=== PATIENT | female | born 1970 | race Caucasian/White ===

== ENCOUNTER → 2019-12-07 | Outpatient (CLI) | payer OTHER ==
[~2019-12-07] MED LIST: BENADRYL25 MG PO; BUTALBIT-ACETA1 EACH PO; IMITREX100 MG PO; LEVOXYL125 MCG PO; MINIVELLE1 EAC1 PO; NABUMETONE 500500 M2 PO; NURTEC ODT75 MG PO; PROGESTERO50 MG/1 M3 PO; ZYRTEC10 M5 PO
[2019-12-07 16:30] LABS: ABSOLUTE NEUTROPHILS 3.4 thou/uL (1.4-8.2); HEMATOCRIT 42.5 % (37.0-47.0); HEMOGLOBIN 14.2 gm/dL (12.0-15.0); LYMPHOCYTES 35.1 % (24.0-44.0); MCH 29.4 pg (26.0-34.0); MCHC 33.4 g/dL (28.0-37.0); MCV 87.8 fL (80.0-100.0); MONOCYTES 7.1 % (1.0-8.0); PLATELET COUNT 259 thou/uL (150-400); POLYS 53.8 % (36.0-66.0); RBC 4.84 mil/uL (4.20-5.00); RDW 13.5 % (10.5-14.5); WBC 6.3 thou/uL (4.0-11.0)
[2019-12-07 16:57] LABS: ALBUMIN 4.1 g/dL (3.4-5.0); ANION GAP 6 mmol/L (7-16); BUN 7 mg/dL (7-18); CALCIUM 9.2 mg/dL (8.5-10.1); CHLORIDE 99 mmol/L (98-107); CHOLESTEROL 181 mg/dL (<200); CO2 30 mmol/L (21-32); CREATININE 0.7 mg/dL (0.6-1.0); GLUCOSE 100 mg/dL (74-106); HDL CHOLESTEROL 57 mg/dL (>40); LDL CHOLESTEROL 98 mg/dL (<100); POTASSIUM 4.3 mmol/L (3.5-5.1); SGOT 14 U/L (15-37); SGPT 16 U/L (30-65); SODIUM 135 mmol/L (136-145); TC:HDL 3.2 Ratio (Not establshd); TOTAL BILIRUBIN 0.3 mg/dL (0.2-1.0); TOTAL PROTEIN 7.4 g/dL (6.4-8.2); TRIGLYCERIDE 134 mg/dL (<150); VLDL 27 mg/dL (<40)
[2019-12-09 02:36] LABS: GLYCOHEMOGLOBIN (HGB A1C) 5.2 % (4.8-5.6)
== END ==
LOC: LAB 15:44
PROVIDERS: ATTEND Family Medicine
DX: Z20.2 Contact with and (suspected) exposure to infections with a predominantly sexual mode of transmission (principal); Z00.00 Encounter for general adult medical examination without abnormal findings; E03.9 Hypothyroidism, unspecified

== ENCOUNTER → 2019-12-13 | Outpatient (CLI) | payer OTHER | LOC: LAB 10:51 | PROVIDERS: ATTEND Student in an Organized Health Care Education/Training Program | DX: Z03.818 Encounter for observation for suspected exposure to other biological agents ruled out (principal) ==

== ENCOUNTER → 2020-02-08 | Outpatient (CLI) | payer OTHER | LOC: MRI 13:49 | PROVIDERS: ATTEND Family Medicine | DX: M47.816 Spondylosis without myelopathy or radiculopathy, lumbar region (principal); M48.061 Spinal stenosis, lumbar region without neurogenic claudication ==

== ENCOUNTER → 2020-02-28 | Outpatient (CLI) | payer OTHER ==
[~2020-02-28] VITALS: Ht 167.6 cm; Wt 66.2 kg
[2020-02-28 12:28] VITALS: BP 137/96
--- NOTE | 2020-02-28 12:47 | NUR ---
Pain Clinic Assessment: 1. History of Osteoarthritis: Not Applicable History of Rheumatoid Arthritis: Not Applicable 2. Height: 5 ft. 6 in. 167.6 cm. Weight: 146.0 lb. oz. 66.225 kg. Patient's BMI: 23.6 3. Vital Signs: BP: 137/96 Pulse: 83 Resp: 20 Temp: 02 Sat: 98 ECG Mon: 4. Pain Intensity: 4; 8 AT WORST 5. Fall Risk: Dizziness: N Needs help standing or walking: N Fallen in the last 3 months: N Fall risk comments: 6. Patient on Blood Thinner: None 7. History of Hypertension: N 8. Opioid Therapy greater than 6 weeks: N Opiate Contract Signed: 9. Risk Assessment Tool Provided: 0-LOW RISK 10. Functional Assessment Tool: 11. Recreational Drug Use: Never Drug Type: Tobacco Use: Never Smoker Tobacco Type: Amount or Packs/day: How Many Years: Alcohol Use: Yes Frequency: Weekly Quant: 3-5
--- NOTE | 2020-03-12 07:39 | HPC ---
[facility] [place] [address] PAIN MANAGEMENT CONSULTATION Name: VESTA MOURA [id number] Admission: 02/28/20 Attend Phys: Vinay Granger DO Discharge: Date of : 72 Report #: [id number] CC: Vinay Covarrubias DATE OF SERVICE: 02/28/2020 REFERRING PHYSICIAN: Vinay Arellano DO CHIEF COMPLAINT: Low back pain, right lower extremity pain with paresthesias. HISTORY OF PRESENT ILLNESS: As you know, the patient is a very pleasant 49-year-old female who reports acute onset of low back pain, right lower extremity pain that began 11/2019. The patient denies any specific injury or trauma that may have led to symptom development. She indicates that her pain has progressively worsened. She sought evaluation through her primary care physician when fdms-sjv-vzgnulv medications, rest and relaxation did not improve symptoms. She had symptoms that were controlled fairly well with conservative treatment prior to this episode. Due to lack of improvement with conservative treatment and progressively worsening symptoms, the patient underwent imaging of the lumbar spine, which showed changes at the L4-L5 level showing severe central canal stenosis and she was subsequently referred to our clinic to discuss interventional treatment options. The patient indicates today her pain is continuous, steady and constant with rhythmic exacerbations of symptoms. She describes the pain as aching, throbbing, sharp, stabbing, numbness and tingling. Places current pain score 5/10, daily average anywhere from 4-5/10, the worst pain has been is 8/10. The patient states that pain is exacerbated with pushing, pulling, stretching and standing for long periods of time as well as walking long distances. Pain is improved with Biofreeze, ibuprofen, heat and cold compresses and repositioning. She has been referred to our service to discuss interventional treatment options to address suspected lumbar radiculopathy secondary to central canal stenosis. PAST MEDICAL HISTORY: 1. Hypothyroidism. 2. Seasonal allergies. 3. Cervical cancer, status post hysterectomy. 4. Chronic low back pain. PAST SURGICAL HISTORY: 1. Hysterectomy. 2. Thyroidectomy. 3. Correction of a "lazy eye." 4. Jaw surgery. 5. Carpal tunnel release. 6. Laparoscopic lysis of adhesions. 7. ACL reconstruction. 8. Bladder sling surgery. SOCIAL HISTORY: The patient denies tobacco, IV or illicit drug use. Admits to approximately 3-5 alcohol beverages per week. She is employed as a surgical nurse. She is working, not receiving workmen's compensation nor is she trying to obtain disability benefits. She is not in litigation in regards to pain. REVIEW OF SYSTEMS: Positive for wearing corrective eyewear, hearing loss with tinnitus, chronic sinus problems with rhinitis, seasonal allergies, frequent and recurrent headaches, thyroid disease, chronic low back pain, right lower extremity pain. All other review of systems negative per 12-point review of systems other than those listed in history of present illness. Pain impact score 20/70 indicating vgrf-kz-nxvugozz interference of daily activities secondary to pain. ALLERGIES: ERYTHROMYCIN. CURRENT MEDICATIONS: Nurtec 75 mg, Fioricet p.r.n., sumatriptan 100 mg p.o. p.r.n., diphenhydramine 25 mg per day, estradiol 1 mg once a day, progesterone 100 mg per day, cetirizine 10 mg per day, levothyroxine 125 mcg per day. IMAGING: MRI lumbar spine obtained 02/08/2020 shows L1-L2 unremarkable. L2-L3 shows bilateral facet hypertrophy and ligamentum flavum hypertrophy. No significant central canal nor neural foraminal stenosis. L3-L4 bilateral facet arthropathy, ligamentum flavum hypertrophy. No significant central canal or neural foraminal narrowing. L4-L5, broad-based posterior disk bulge, bilateral facet hypertrophy resulting in severe central canal stenosis with AP diameter measuring only 7.8 mm. L5-S1 bilateral atrophic changes, no central canal nor neural foraminal narrowing. PHYSICAL EXAMINATION: VITAL SIGNS: Blood pressure 137/96, pulse 83, respiratory rate 20 and unlabored. The patient is 98% on room air. Height 5 feet 6 inches tall, weight 146 pounds, BMI calculated 23.6. GENERAL: Well-developed, well-nourished, well-hydrated 49-year-old female appearing stated age, pain is rated anywhere from 4-8/10. HEENT: Normocephalic, atraumatic. Pupils equal, round and reactive to light. Extraocular muscles are intact. Sclerae nonicteric without injection. NEUROLOGIC: Cranial nerves 2-12 grossly intact. Speech is fluent. LUNGS: Clear, no wheeze, rhonchi or rales. CARDIOVASCULAR: Regular. No appreciable gallop, no rub. ABDOMEN: Soft, nontender, nondistended, normal active bowel sounds. EXTREMITIES: Show no clubbing, no cyanosis. No appreciable edema. MUSCULOSKELETAL: Lower extremity strength equal and symmetrical 5/5. Slight giveaway strength noted with hip flexion on the right when compared to left. This is due to pain generation. Seated straight leg raising is mildly positive. Supine straight leg raising positive on the right. Moy's test is negative. Modified Gaenslen's positive for axial low back pain. Ankle clonus negative. Babinski is negative. The patient is able to toe walk and heel walk. She is intact to light touch from L1 through S2 dermatomes. Deep tendon reflexes equal and symmetrical at patella and Achilles. ASSESSMENT: 1. Symptomatic lumbar radiculopathy. 2. Severe central canal stenosis of lumbar spine. 3. Displacement of lumbar intervertebral disk with radiculopathy. 4. Lumbosacral spondylosis with radiculopathy. 5. Neural foraminal stenosis of the lumbar spine. 6. Facet arthropathy of the lumbar spine. 7. Chronic intractable pain. PLAN: 1. Based on today's physical exam and history the patient has provided, the description the patient uses in regards to pain as well as location of symptoms, it would appear that she is suffering from lumbar radiculopathy. We reviewed the patient's MRI with her today with the changes noted at the L4-L5 level consistent with the patient's symptoms of lower extremity symptomology due to central canal stenosis. At present, she only has effects of pain on the right side, but has had a history of left-sided symptoms in the past, which is consistent with the central canal stenosis. After reviewing the MRI and correlating these findings to her current symptoms, we then discussed treatment options with the patient. The following was discussed with the patient as treatment courses. We discussed physical therapy, stretching exercises, core strengthening techniques. This would initially be done in a formalized fashion and then transition into home based treatment. We discussed medication management with suggestions of treatment to address neuropathic symptoms with nortriptyline, amitriptyline, Cymbalta, Lyrica or gabapentin. We also discussed the possible addition of nonsteroidal anti-inflammatories as a treatment course. We discussed epidural injections under fluoroscopic guidance for which the patient was referred to our clinic. We also discussed surgical options, both the spinal cord stimulator technology and surgical decompression at the L4-L5 level. After reviewing the risks and benefits of all proposed treatment options, the patient chose to move forward with the lumbar epidural injection under fluoroscopic guidance. 2. The patient was advised that due to third democrat payer restrictions, authorization would have to be obtained before the patient could undergo a lumbar epidural injection. Authorization could take anywhere from 4-7 working days. We will begin this process immediately. Once we have this authorization, we will contact the patient to be seen and undergo the procedure. We are hopeful we can get this authorization done quickly and have the patient return to undergo the first in a series of epidural injections. 3. No medication changes made at today's visit. The patient will continue current medical therapy as prior prescribed. We recommend she continue treatment at a current dosing. We will discuss possible adjustments in medication management at next visit if epidural injection is ineffective at treating symptoms fully. 4. We will see the patient back in followup visit once we have authorization to undergo lumbar epidural injection under fluoroscopic guidance to address central canal stenosis and resultant lumbar radiculopathy. 5. We wish to thank Dr. Arellano for the opportunity to see this patient in consultation. We will keep you apprised of response to treatment as we address lumbar radiculopathy. Again, we wish to thank you for the opportunity to see this patient in consultation. <ELECTRONICALLY SIGNED> By: Vinay Granger DO 03/12/20 0739 [id number] Vinay Granger DO /nt
== END ==
LOC: PAIN 06:38
PROVIDERS: ATTEND Anesthesiology Pain Medicine
DX: M47.27 Other spondylosis with radiculopathy, lumbosacral region (principal); M51.16 Intervertebral disc disorders with radiculopathy, lumbar region; M79.604 Pain in right leg; R20.2 Paresthesia of skin; M48.061 Spinal stenosis, lumbar region without neurogenic claudication; G89.29 Other chronic pain; Z88.8 Allergy status to other drugs, medicaments and biological substances; Z79.899 Other long term (current) drug therapy

== ENCOUNTER → 2020-04-08 | Outpatient (CLI) | payer OTHER | LOC: LAB 11:31 | PROVIDERS: ATTEND Family Medicine | DX: R50.9 Fever, unspecified (principal); J02.9 Acute pharyngitis, unspecified; Z20.828 Contact with and (suspected) exposure to other viral communicable diseases ==

== ENCOUNTER → 2020-04-30 | Outpatient (CLI) | payer OTHER ==
[2020-04-30 12:02] LABS: ABSOLUTE NEUTROPHILS 3.5 thou/uL (1.4-8.2); BASOPHILS 2.5 % (0.0-2.0); EOSINOPHILS 1.6 % (0.0-3.0); HEMATOCRIT 41.6 % (37.0-47.0); HEMOGLOBIN 13.6 gm/dL (12.0-15.0); LYMPHOCYTES 33.1 % (24.0-44.0); MCH 29.3 pg (26.0-34.0); MCHC 32.6 g/dL (28.0-37.0); MCV 89.8 fL (80.0-100.0); MONOCYTES 7.3 % (1.0-8.0); PLATELET COUNT 236 thou/uL (150-400); POLYS 55.5 % (36.0-66.0); RBC 4.63 mil/uL (4.20-5.00); RDW 13.8 % (10.5-14.5); WBC 6.4 thou/uL (4.0-11.0)
[2020-04-30 12:17] LABS: ALBUMIN 3.7 g/dL (3.4-5.0); CREATININE 0.8 mg/dL (0.6-1.0); POTASSIUM 3.7 mmol/L (3.5-5.1); TOTAL BILIRUBIN 0.3 mg/dL (0.2-1.0); TOTAL PROTEIN 7.1 g/dL (6.4-8.2)
== END ==
LOC: LAB 11:30
PROVIDERS: ATTEND Nurse Practitioner
DX: G43.901 Migraine, unspecified, not intractable, with status migrainosus (principal)

== ENCOUNTER → 2020-09-27 | Outpatient (CLI) | payer OTHER | LOC: LAB 10:13 | PROVIDERS: ATTEND Family Medicine | DX: E03.9 Hypothyroidism, unspecified (principal) ==

== ENCOUNTER → 2020-10-04 | Outpatient (CLI) | payer OTHER | LOC: CAT 15:28 | PROVIDERS: ATTEND Nurse Practitioner | DX: K82.9 Disease of gallbladder, unspecified (principal); K59.00 Constipation, unspecified ==

== ENCOUNTER → 2021-01-30 | Outpatient (CLI) | payer OTHER | LOC: CAT 13:59 | PROVIDERS: ATTEND Nurse Practitioner | DX: K44.9 Diaphragmatic hernia without obstruction or gangrene (principal); R19.5 Other fecal abnormalities; N32.89 Other specified disorders of bladder; K57.90 Diverticulosis of intestine, part unspecified, without perforation or abscess without bleeding; R19.7 Diarrhea, unspecified; R10.9 Unspecified abdominal pain ==

== ENCOUNTER → 2021-03-18 | Outpatient (CLI) | payer OTHER ==
[~2021-03-18] MED LIST changes: +ACETAMINOPHEN325 M1 PO; +AUGMENTIN 875-1 EACH PO; +COLACE 100 MG100 MG PO; +ESTRACE0.5 MG PO; +IBUPROFEN 200200 M1 PO; +LORAZEPAM 0.50.5 MG PO; +MIRALAX17 GM PO; +OXYCODONE HCL 55 MG PO; +ZOFRAN ODT4 MG DISSOLVE
--- NOTE | 2021-03-18 11:36 | NUR ---
PT BROUGHT OVER FROM [facility] AFTER BECOMING NAUSEATED AND DIAPHORETIC WHEN SHE RECEIVED MORPHINE. PT REPORTS SHE HAS HAD A PROBLEM IN THE PAST WITH "SOME KIND OF NARCOTIC" BUT DOESN'T REMEMBER WHICH MED. ON ARRIVAL TO [facility] PT APPEARED PALE AD HER INITIAL BP WAS 82SBP. PT WAS PLACED IN A REVERSE TRENDELENBERG POSITION, NS BOLUS STARTED AND ZOFRAN 4MG GIVEN IV. DR. GROSS NOTIFIED AND OK WITH THE FLUIDS AND ZOFRAN. PT IS CURRENTLY FEELING BETTER, NO LONGER DIAPHORETIC AND VITALS HAVE IMPROVED. PT IS SITTING UP WITH HOB ELEVATED AT 45DEGREES AND REPORTS SHE WILL HAVE A RIDE HOME WHEN READY.,
--- NOTE | 2021-03-18 13:25 | NUR ---
PT MOTHER HERE TO PICK HER UP. DENIES ANY NAUSEA AT THIS TIME. ALERT AND ORIENTED, VSS. AMBULATORY WITH STEADY GAIT. IV REMOVED, CANNULA INTACT. NO REDNESS AT SITE. DC'D VIA W/C WITH VOLUNTEER.
== END ==
LOC: NUC 07:19
PROVIDERS: ATTEND Family Medicine
DX: N32.89 Other specified disorders of bladder (principal); M81.0 Age-related osteoporosis without current pathological fracture

== ENCOUNTER → 2021-03-20 | Outpatient (CLI) | payer OTHER ==
[2021-03-21 07:47] LABS: HEMATOCRIT 40.5 % (37.0-47.0); HEMOGLOBIN 13.6 gm/dL (12.0-15.0); MCH 29.7 pg (26.0-34.0); MCHC 33.6 g/dL (28.0-37.0); MCV 88.6 fL (80.0-100.0); RBC 4.57 mil/uL (4.20-5.00); RDW 13.5 % (10.5-14.5); WBC 4.9 thou/uL (4.0-11.0)
[2021-03-21 08:18] LABS: CALCIUM 8.6 mg/dL (8.5-10.1); CREATININE 0.7 mg/dL (0.6-1.0); POTASSIUM 3.9 mmol/L (3.5-5.1)
[2021-03-21 08:22] LABS: ALBUMIN 3.5 g/dL (3.4-5.0); TOTAL BILIRUBIN 0.4 mg/dL (0.2-1.0); TOTAL PROTEIN 6.5 g/dL (6.4-8.2)
== END ==
LOC: LAB 14:48
PROVIDERS: Surgery; ATTEND Student in an Organized Health Care Education/Training Program
DX: Z20.822 Contact with and (suspected) exposure to COVID-19 (principal)

== ENCOUNTER 2021-03-21 06:20 | Observation (INO) | payer OTHER ==
[~2021-03-21] VITALS: Ht 167.6 cm; Wt 66.2 kg
[~2021-03-21 06:20] MED LIST changes: -ACETAMINOPHEN325 M1 PO; -COLACE 100 MG100 MG PO; -IBUPROFEN 200200 M1 PO; -MIRALAX17 GM PO; -OXYCODONE HCL 55 MG PO; -ZOFRAN ODT4 MG DISSOLVE
[2021-03-21 07:04] VITALS: BP 124/79
[2021-03-21 07:47] LABS: HEMATOCRIT 40.5 % (37.0-47.0); HEMOGLOBIN 13.6 gm/dL (12.0-15.0); MCH 29.7 pg (26.0-34.0); MCHC 33.6 g/dL (28.0-37.0); MCV 88.6 fL (80.0-100.0); RBC 4.57 mil/uL (4.20-5.00); RDW 13.5 % (10.5-14.5); WBC 4.9 thou/uL (4.0-11.0)
[2021-03-21 08:18] LABS: CALCIUM 8.6 mg/dL (8.5-10.1); CREATININE 0.7 mg/dL (0.6-1.0); POTASSIUM 3.9 mmol/L (3.5-5.1)
[2021-03-21 08:22] LABS: ALBUMIN 3.5 g/dL (3.4-5.0); TOTAL BILIRUBIN 0.4 mg/dL (0.2-1.0); TOTAL PROTEIN 6.5 g/dL (6.4-8.2)
[2021-03-21] MEDS ORDERED: IBUPROFEN 200200 M1 PO (10:26)
[2021-03-21] MEDS ORDERED: OXYCODONE HCL 55 MG PO (10:26)
[2021-03-21] MEDS ORDERED: ACETAMINOPHEN325 M1 PO (10:27)
[2021-03-21] MEDS ORDERED: COLACE 100 MG100 MG PO (10:27)
[2021-03-21] MEDS ORDERED: MIRALAX17 GM PO (10:27)
[2021-03-21] MEDS ORDERED: ZOFRAN ODT4 MG DISSOLVE (10:30)
[2021-03-21 15:39] VITALS: BP 112/73
--- NOTE | 2021-03-21 16:01 | NUR ---
Pt trasferred to unit from PACU. Pt a&ox4. Pain controlled. Incision dry, intact and well approximated. On 2L O2. Cont pulse ox in place. SCDs in place. Call light within reach. Will continue to monitor.
[2021-03-21 16:56] VITALS: BP 111/81
[2021-03-21 19:22] VITALS: BP 119/76
--- NOTE | 2021-03-21 23:05 | NUR ---
ASSESSMENT COMPLETED. PT IS ALERT AND ORINETED. SHE IS AMBULATING WELL TO THE BATHROOM. OBSERVED ON ROOM AIR W/A,SATTING WELL ABOVE 98%, CONT PULSE OX IN PLACE.AFEBRILE. ABDOMINAL LAP SITES LOOK OKAY. SHE REPORTS EATING DINNER WELL, NO PAIN AT THIS TIME REQUIRING EXTRA PRN MEDS, TIMED PAIN MEDS IN PLACE.
[2021-03-22 02:51] VITALS: BP 138/82
[2021-03-22 07:31] VITALS: BP 117/75
[2021-03-22 09:56] VITALS: BP 117/75
--- NOTE | 2021-03-22 10:15 | NUR ---
ASSUMED PT CARE THIS AM. PT IS ALERT & ORIENTED X4. PT HAS IV SITE ON RAC SALINE LOCKED. PT IS UP AD EDVIN AND HAS BEEN AMBULATING IN THE HALLWAY THIS AM. NO C/O OF PAIN, NAUSEA AND VOMITING. 98% O2 SAT RA THIS AM. REMOVED IV. EDUCATED AND INFORMED PT ABOUT DC INSTRUCTIONS SUCH WHEN TO FOLLOW UP AND MEDICATIONS. AWAITING FOR PT MOM TO PICK HER UP. WILL CONTINUE TO MONITOR PT. FOLLOW POC.
--- NOTE | 2021-03-25 13:08 | PATH ---
[facility] [place] [address] PATHOLOGY RPT PROCEDURE Name: VESTA MOURA Room #: 441-P IZABELLA Alvarez#: [id number] Admission: 03/21/21 Date of : 72 Discharge: 03/22/21 Report #: [id number] Path Case #: [id number] [facility] Accession Number: [id number] . 01 Material submitted: . gallbladder - GALLBLADDER . 01 Clinical history: . LAPAROSCOPIC CHOLECYSTECTOMY W/ GRAM CHOLECYSTITIS . 02 Diagnosis: Gallbladder, cholecystectomy: - Mild chronic cholecystitis. - Cholelithiasis. . (IUV:mml; 03/24/2021) QLM 03/24/2021 1232 Local . 02 Electronically signed: . Adele Pérez MD, Pathologist NPI- [id number] . 01 Gross description: . Fixative: Formalin Labeled: Gallbladder Specimen received: Intact Dimensions: 1.3 x 4.9 x 3.4 cm Serosa: Smooth, lima-pink with a roughened hepatic bed Lymph node: No Mucosa: Flattened, lima-pink trabecular Average wall thickness: 0.4 cm Calculi: Yes, 3 lima-yellow multifaceted calculi measuring an area 3.6 x 3.2 x 1.7 cm Abnormalities: No A1- Supervisor Blood body, fundus, and the cystic duct margin(inked black). ([facility]; 03/22/2021) . GZA/GZA 03/22/2021 0750 Local . 02 Pathologist provided ICD-10: K80.10 . 02 CPT . 835367 Specimen Comment: A courtesy copy of this report has been sent to [phone], [phone] [address] PATHOLOGY RPT PROCEDURE Name: VESTA MOURA Room #: 441-P [facility] Magdalena Alvarez#: [id number] Admission: 03/21/21 Date of : 72 Discharge: 03/22/21 Report #: [id number] Path Case #: [id number] Specimen Comment: [id number] Specimen Comment: Report sent to , DR TOMPKINS Specimen Comment: A duplicate report has been generated due to demographic updates. Performed at: [facility]ah Gud[facility] [address] [place] [address] [address], [place], [place] [id number] MD Rikki Martinez MD Phone: [phone] Performed at: [address] [id number] MD Adele Pérez MD Phone: [phone]
== END 2021-03-22 11:14 | disposition home or self-care (01) ==
LOC: OR → TBA 06:22 → OR 10:37 → 4S 15:07 → OR 15:07 → 4S 03-22 11:14
PROVIDERS: ADMIT Surgery; ATTEND Surgery
DX: K81.1 Chronic cholecystitis (principal); K81.0 Acute cholecystitis; Z20.822 Contact with and (suspected) exposure to COVID-19; K82.1 Hydrops of gallbladder
CPT/HCPCS: 50010; 50101; 50411; 50555; 51489; 52265; 52266; 53307; 53310; 53312; 54022; 54118; 55245; 56462; 56525; 56526; 56674; 58574; 58910; 62110; 62900; 70005

== ENCOUNTER → 2021-05-02 | Outpatient (CLI) | payer OTHER ==
[~2021-05-02] MED LIST changes: +ACETAMINOPHEN325 M1 PO; +COLACE 100 MG100 MG PO; +IBUPROFEN 200200 M1 PO; +MIRALAX17 GM PO; +OXYCODONE HCL 55 MG PO; +ZOFRAN ODT4 MG DISSOLVE
[2021-05-02 13:28] LABS: HEMATOCRIT 39.6 % (37.0-47.0); HEMOGLOBIN 13.3 gm/dL (12.0-15.0); MCH 29.6 pg (26.0-34.0); MCHC 33.7 g/dL (28.0-37.0); RBC 4.5 mil/uL (4.20-5.00); RDW 13.3 % (10.5-14.5); WBC 5.8 thou/uL (4.0-11.0)
[2021-05-02 13:48] LABS: ALBUMIN 3.6 g/dL (3.4-5.0); CALCIUM 8.9 mg/dL (8.5-10.1); CREATININE 0.8 mg/dL (0.6-1.0); TOTAL BILIRUBIN 0.3 mg/dL (0.2-1.0); TOTAL PROTEIN 6.9 g/dL (6.4-8.2)
== END ==
LOC: LAB 12:50
PROVIDERS: ATTEND Surgery
DX: K81.9 Cholecystitis, unspecified (principal)

== ENCOUNTER 2021-06-26 16:18 | Emergency (ER) | payer OTHER ==
[~2021-06-26] VITALS: Ht 165.1 cm; Wt 65.8 kg
[2021-06-26] MEDS ORDERED: SYNTHROID112 MC1 PO (16:31)
[2021-06-26 17:00] LABS: ABSOLUTE NEUTROPHILS 2.3 thou/uL (1.4-8.2); BASOPHILS 2.5 % (0.0-2.0); HEMATOCRIT 41.1 % (37.0-47.0); HEMOGLOBIN 13.8 gm/dL (12.0-15.0); LYMPHOCYTES 39.4 % (24.0-44.0); MCH 29.2 pg (26.0-34.0); MCHC 33.6 g/dL (28.0-37.0); MCV 86.8 fL (80.0-100.0); MONOCYTES 7.4 % (1.0-8.0); PLATELET COUNT 253 thou/uL (150-400); POLYS 48.7 % (36.0-66.0); RBC 4.74 mil/uL (4.20-5.00); RDW 13.1 % (10.5-14.5); WBC 4.7 thou/uL (4.0-11.0)
[2021-06-26 17:07] LABS: CALCIUM 9.4 mg/dL (8.5-10.1); CREATININE 0.7 mg/dL (0.6-1.0); POTASSIUM 3.9 mmol/L (3.5-5.1)
[2021-06-26 18:52] VITALS: BP 135/79
== END 2021-06-26 18:50 | disposition home or self-care (01) ==
LOC: ER 16:18
PROVIDERS: Student in an Organized Health Care Education/Training Program
DX: G43.109 Migraine with aura, not intractable, without status migrainosus (principal); E89.0 Postprocedural hypothyroidism; Z90.710 Acquired absence of both cervix and uterus; Z79.899 Other long term (current) drug therapy; Z88.5 Allergy status to narcotic agent; Z88.1 Allergy status to other antibiotic agents